=== PATIENT | male | born 1975 | race Caucasian/White ===

== ENCOUNTER 2016-08-12 01:39 | Emergency (ER) | payer MEDICAID ==
[2016-08-12 01:57] VITALS: BP 156/88
[2016-08-12] MEDS ORDERED: Bacitracin Oint 1 GM U/D Packet TOP ONE (02:01)
--- NOTE | 2016-08-12 02:05 | EDM.PDOC ---
[id number] 4d LT INDEX CUT Time Seen by Provider: 08/12/16 01:50 Source of Information: Reports: Patient History Limitations: Reports: No Limitations - History of Present Illness INITIAL COMMENTS - FREE TEXT/NARRATIVE: 41-year-old male had a repair of a laceration of his hand 4 days ago, the sutures have fallen out. He just wants it checked to make sure nothing needs to be done. Duration: Day(s): (4 days ago) Severity: Mild Associated Symptoms: Reports: No Other Symptoms - Related Data Allergies Allergy/AdvReac Type Severity Reaction Status Date / Time codeine Allergy Intermediate Itching Verified 08/12/16 01:57 tramadol Allergy Intermediate Itching Verified 08/12/16 01:57 Home Meds: Home Meds Carisoprodol [Soma] 350 mg PO BID 01/21/13 [History] Gabapentin [Gabapentin] 600 mg PO 6XDAY 01/21/13 [History] Hydrocodone/Acetaminophen [[place] 7.5-325] 1 - 2 tab PO Q4H PRN #32 tablet [Rx] Cephalexin [Keflex] 500 mg PO Q6HR #40 cap 08/08/16 [Rx] Past Medical History Musculoskeletal History: Reports: Other (See Below) Other Musculoskeletal History: chronic low back pain, 4 knee surgeries Social & Family History - Tobacco Use Smoking Status *Q: Former Smoker Years of Tobacco use: 15 Used Tobacco, but Quit: Yes Month Tobacco Last Used: quit 5 years ago Second Hand Smoke Exposure: Yes - Caffeine Use Caffeine Use: Reports: Coffee - Alcohol Use Days Per Week of Alcohol Use: 0 - Recreational Drug Use Recreational Drug Use: No ED ROS GENERAL - Review of Systems Review Of Systems: See Below Constitutional: Denies: Fever GI/Abdominal: Denies: Nausea, Vomiting ED EXAM, SKIN/RASH Exam: See Below Exam Limited By: No Limitations General Appearance: Alert, No Apparent Distress Respiratory/Chest: No Respiratory Distress Extremities: Other (Exam is otherwise limited to the left hand. He has a 2 cm laceration which is healing on the palmar aspect of the base of the index finger.) Course - Vital Signs Last Recorded V/S: Last Vital Signs Temp 98.7 F 08/12/16 01:55 Pulse 90 08/12/16 01:55 Resp 14 08/12/16 01:55 BP 156/88 H 08/12/16 01:55 Pulse Ox 92 L 08/12/16 01:55 - Orders/Labs/Meds Meds: Medications Discontinued Medications Generic Name Dose Route Start Last Admin Trade Name Wes PRN Reason Stop Dose Admin Bacitracin 1 dose 08/12/16 02:01 08/12/16 02:09 Bacitracin Oint 1 Gm TOP 08/12/16 02:02 1 dose ONETIME ONE Administration - Re-Assessments/Exams Free Text/Narrative Re-Assessment/Exam: 08/12/16 02:03 Topical bacitracin was applied and the finger was bandaged. The patient just keeps the finger covered and clean for another several days it should heal without further repair. Departure - Departure Time of Disposition: 02:15 Disposition: Home, Self-Care 01 Condition: good Clinical Impression: Laceration of finger Qualifiers: Encounter type: initial encounter Finger: index finger Damage to nail status: without damage Foreign body presence: without foreign body Laterality: left Qualified Code(s): S61.211A - Laceration without foreign body of left index finger without damage to nail, initial encounter - Discharge Information Instructions: Laceration Care, Adult Referrals: PCP,None [Primary Care Provider] - Forms: ED Department Discharge Care Plan Goals: Keep wound covered and clean while healing and you should continue to improve. Recheck if concerns of infection or not healing satisfactorily.
== END 2016-08-12 02:12 | disposition home or self-care (01) ==
LOC: JP.ED 01:39
DX: S61.211A Laceration without foreign body of left index finger without damage to nail, initial encounter (principal); Z88.5 Allergy status to narcotic agent; Z88.8 Allergy status to other drugs, medicaments and biological substances; Z98.890 Other specified postprocedural states; Z87.891 Personal history of nicotine dependence; X58.XXXA Exposure to other specified factors, initial encounter
CPT/HCPCS: 99283

== ENCOUNTER 2017-09-20 04:31 | Emergency (ER) | payer MEDICAID ==
[2017-09-20 04:43] VITALS: BP 145/85
--- NOTE | 2017-09-20 05:13 | EDM.PDOC ---
ED HPI GENERAL MEDICAL PROBLEM - General Chief Complaint: ENT Problem Stated Complaint: PAIN IN BOTH EARS RIGHT IS THE WORST Time Seen by Provider: 09/20/17 05:08 Source of Information: Reports: Patient History Limitations: Reports: No Limitations - History of Present Illness INITIAL COMMENTS - FREE TEXT/NARRATIVE: Both ears hurting for 1 day especially the right ear. so bad that he can't sleep. He's been swimming recently. Right Ear Pain Score (Numeric/FACES): 9 - Related Data Allergies Allergy/AdvReac Type Severity Reaction Status Date / Time codeine Allergy Intermediate Itching Verified 09/20/17 04:43 tramadol Allergy Intermediate Itching Verified 09/20/17 04:43 Home Meds: Home Meds Carisoprodol [Soma] 350 mg PO BID 01/21/13 [History] Gabapentin 600 mg PO 6XDAY 01/21/13 [History] Hydrocodone/Acetaminophen [[place] 7.5-325] 1 - 2 tab PO Q4H PRN #32 tablet [Rx] Omeprazole 40 mg PO DAILY 09/20/17 [History] Past Medical History Cardiovascular History: Reports: Hypertension Gastrointestinal History: Reports: Cholelithiasis Musculoskeletal History: Reports: Back Pain, Chronic Other Musculoskeletal History: chronic low back pain, 4 knee surgeries Neurological History: Reports: Migraines - Infectious Disease History Infectious Disease History: Reports: Chicken Pox - Past Surgical History GI Surgical History: Reports: Cholecystectomy Neurological Surgical History: Reports: Discectomy Other Neurological Surgeries/Procedures: L4 &5 Musculoskeletal Surgical History: Reports: Arthroscopic Knee Other Musculoskeletal Surgeries/Procedures:: x3 Social & Family History - Family History Family Medical History: Noncontributory - Tobacco Use Smoking Status *Q: Former Smoker Used Tobacco, but Quit: Yes Month/Year Tobacco Last Used: 5-6 years ago - Caffeine Use Caffeine Use: Reports: Soda - Recreational Drug Use Recreational Drug Use: No ED ROS ENT - Review of Systems Review Of Systems: ROS reveals no pertinent complaints other than HPI. ED EXAM, ENT - Physical Exam Exam: See Below Exam Limited By: No Limitations General Appearance: Alert, WD/WN Ears: Other (Canals are very narrow and deep. Both slightly reddened and wet. Right TM bulging some but not well seen ) Mouth/Throat: Normal Oropharynx Course - Vital Signs Last Recorded V/S: Last Vital Signs Temp 37.0 C 09/20/17 04:35 Pulse 63 09/20/17 04:35 Resp 18 09/20/17 04:35 BP 145/85 H 09/20/17 04:35 Pulse Ox 97 09/20/17 04:35 Departure - Departure Time of Disposition: 05:13 Disposition: Home, Self-Care 01 Condition: Fair Clinical Impression: Otitis media, Otitis externa - Discharge Information Referrals: Frandy Matrines MD [Primary Care Provider] - Additional Instructions: Use cortisporin drops as directed for about 5 days for infection in the ear canal. There may be an infection behind the eardrum also and the oral amoxicillin will take care of that. See your doctor if no better in 3 days.
== END 2017-09-20 05:21 | disposition home or self-care (01) ==
LOC: JP.ED 04:31
DX: H66.91 Otitis media, unspecified, right ear (principal); H60.91 Unspecified otitis externa, right ear; I10 Essential (primary) hypertension; Z87.891 Personal history of nicotine dependence; Z88.5 Allergy status to narcotic agent
CPT/HCPCS: 99283

== ENCOUNTER 2017-10-19 19:36 | Emergency (ER) | payer MEDICAID ==
--- NOTE | 2017-10-19 20:13 | EDM.PDOC ---
ED HPI GENERAL MEDICAL PROBLEM - General Chief Complaint: Abdominal Pain Stated Complaint: DIARHHEA, FEVER, CHILLS, HEADACHE Time Seen by Provider: 10/19/17 19:52 Source of Information: Reports: Patient History Limitations: Reports: No Limitations - History of Present Illness INITIAL COMMENTS - FREE TEXT/NARRATIVE: 42 yo male presents with ABD pain, fever, chills and diarrhea. poor appetite. denies bloody or black or bloody stools. past ABD surgery of cholecystectomy. denies dysuria. - Related Data Allergies Allergy/AdvReac Type Severity Reaction Status Date / Time codeine Allergy Intermediate Itching Verified 10/19/17 19:50 tramadol Allergy Intermediate Itching Verified 10/19/17 19:50 Home Meds: Home Meds Carisoprodol [Soma] 350 mg PO BID 01/21/13 [History] Gabapentin 600 mg PO 6XDAY 01/21/13 [History] Hydrocodone/Acetaminophen [[place] 7.5-325] 1 - 2 tab PO Q4H PRN #32 tablet [Rx] Omeprazole 40 mg PO DAILY 09/20/17 [History] Past Medical History Cardiovascular History: Reports: Hypertension Gastrointestinal History: Reports: Cholelithiasis Musculoskeletal History: Reports: Back Pain, Chronic Other Musculoskeletal History: chronic low back pain, 4 knee surgeries Neurological History: Reports: Migraines - Infectious Disease History Infectious Disease History: Reports: Chicken Pox - Past Surgical History GI Surgical History: Reports: Cholecystectomy Neurological Surgical History: Reports: Discectomy Other Neurological Surgeries/Procedures: L4 &5 Musculoskeletal Surgical History: Reports: Arthroscopic Knee Other Musculoskeletal Surgeries/Procedures:: x3 Social & Family History - Family History Family Medical History: Noncontributory - Tobacco Use Smoking Status *Q: Never Smoker - Caffeine Use Caffeine Use: Reports: Soda ED ROS GENERAL - Review of Systems Review Of Systems: See Below Constitutional: Reports: Fever, Chills, Malaise, Fatigue Respiratory: Denies: Shortness of Breath, Wheezing Cardiovascular: Denies: Chest Pain GI/Abdominal: Reports: Abdominal Pain, Diarrhea. Denies: Melena, Nausea, Vomiting Skin: Denies: Rash ED EXAM, GI/ABD - Physical Exam Exam: See Below Exam Limited By: No Limitations General Appearance: Alert, WD/WN, No Apparent Distress Head: Atraumatic, Normocephalic Respiratory/Chest: No Respiratory Distress, Lungs Clear, Normal Breath Sounds, No Accessory Muscle Use, Chest Non-Tender Cardiovascular: Regular Rate, Rhythm, No Murmur, No Rub GI/Abdominal Exam: Soft, No Distention, Tender (RLQ sever tenderness) Neurological: Alert, Oriented Skin Exam: Warm, Dry, Intact, No Rash Course - Vital Signs Last Recorded V/S: Last Vital Signs Temp 37.5 C 10/19/17 19:56 Pulse 78 10/19/17 20:59 Resp 16 10/19/17 19:56 BP 121/57 L 10/19/17 20:59 Pulse Ox 99 10/19/17 20:59 - Orders/Labs/Meds Orders: Active Orders 24 hr Category Date Time Status UA W/MICROSCOPIC [URIN] Stat Lab 10/19/17 21:12 Ordered Sodium Chloride 0.9% [Normal Saline] 1,000 ml Med 10/19/17 20:15 Active IV ASDIRECTED Medication Orders Sodium Chloride (Normal Saline) 1,000 mls @ 999 mls/hr IV ASDIRECTED MAITE Last Admin: 10/19/17 20:28 Dose: 999 mls/hr Labs: Laboratory Tests 10/19/17 10/19/17 10/19/17 Range/Units 20:18 20:18 21:12 WBC 6.6 (4.5-11.0) K/uL RBC 5.44 (4.30-5.90) M/uL Hgb 15.5 H (12.0-15.0) g/dL Hct 45.1 (40.0-54.0) % MCV 83 (80-98) fL MCH 29 (27-31) pg MCHC 34 (32-36) % Plt Count 266 (150-400) K/uL Neut % (Auto) 51 (36-66) % Lymph % (Auto) 24 (24-44) % [place] % (Auto) 21 H (2-6) % Eos % (Auto) 2 (2-4) % Baso % (Auto) 1 (0-1) % Sodium 137 L (140-148) mmol/L Potassium 4.0 (3.6-5.2) mmol/L Chloride 102 (100-108) mmol/L Carbon Dioxide 23 (21-32) mmol/L Anion Gap 16.0 H (5.0-14.0) mmol/L BUN 9 (7-18) mg/dL Creatinine 1.2 (0.8-1.3) mg/dL Est Cr Clr Drug Dosing 84.49 mL/min Estimated GFR (MDRD) > 60 (>60) Glucose 91 (74-106) mg/dL Calcium 8.6 (8.5-10.1) mg/dL Total Bilirubin 0.5 (0.2-1.0) mg/dL AST 28 (15-37) U/L ALT 59 (12-78) U/L Alkaline Phosphatase 74 (46-116) U/L Total Protein 6.7 (6.4-8.2) g/dL Albumin 3.2 L (3.4-5.0) g/dL Globulin 3.5 (2.3-3.5) g/dL Albumin/Globulin Ratio 0.9 L (1.2-2.2) Urine Color [place] Urine Appearance Clear Urine pH 5.0 (4.5-8.0) Ur Specific [place] 1.020 (1.008-1.030) Urine Protein Negative (NEGATIVE) mg/dL Urine Glucose (UA) Normal (NEGATIVE) mg/dL Urine Ketones 15 H (NEGATIVE) mg/dL Urine Occult Blood Negative (NEGATIVE) Urine Nitrite Negative (NEGAITVE) Urine Bilirubin Small (NEGATIVE) Urine Urobilinogen Normal (NORMAL) mg/dL Ur Leukocyte Esterase Negative (NEGATIVE) Urine RBC 0-5 (0-5) Urine WBC 0-5 (0-5) Ur Epithelial Cells Moderate Amorphous Sediment Few Urine Bacteria Few Urine Mucus Numerous Urine Other See note Meds: Medications Generic Name Dose Route Start Last Admin Trade Name Freq PRN Reason Stop Dose Admin Sodium Chloride 1,000 mls @ 999 mls/hr 10/19/17 20:15 10/19/17 20:28 Normal Saline IV 999 mls/hr ASDIRECTED MAITE Administration Discontinued Medications Generic Name Dose Route Start Last Admin Trade Name Freq PRN Reason Stop Dose Admin Fentanyl 50 mcg 10/19/17 20:08 10/19/17 20:28 Sublimaze IVPUSH 10/19/17 20:09 50 mcg ONETIME ONE Administration Ondansetron HCl 4 mg 10/19/17 20:08 10/19/17 20:28 Zofran IVPUSH 10/19/17 20:09 4 mg ONETIME ONE Administration - Re-Assessments/Exams Free Text/Narrative Re-Assessment/Exam: 10/19/17 21:38 pain resolved. rehydrated. will follow-up with PCP for stool samples if diarrhea continues Departure - Departure Time of Disposition: 21:38 Disposition: Home, Self-Care 01 Condition: Good Clinical Impression: Gastroenteritis Diarrhea Qualifiers: Diarrhea type: unspecified type Qualified Code(s): R19.7 - Diarrhea, unspecified - Discharge Information *PRESCRIPTION DRUG MONITORING PROGRAM REVIEWED*: Not Applicable *COPY OF PRESCRIPTION DRUG MONITORING REPORT IN PATIENT GLADYS: Not Applicable Instructions: Viral Gastroenteritis, Adult, [id number] Referrals: Frandy Martines MD [Primary Care Provider] - Forms: ED Department Discharge Additional Instructions: fluid intake with goal of 1.5-2 liters per day advance diet as tolerated follow-up with primary care for stool samples if diarrhea continues - My Orders Last 24 Hours: My Active Orders 10/19/17 20:15 Sodium Chloride 0.9% [Normal Saline] 1,000 ml IV ASDIRECTED 10/19/17 21:12 UA W/MICROSCOPIC [URIN] Stat - Assessment/Plan Last 24 Hours: My Active Orders 10/19/17 20:15 Sodium Chloride 0.9% [Normal Saline] 1,000 ml IV ASDIRECTED 10/19/17 21:12 UA W/MICROSCOPIC [URIN] Stat
[2017-10-19] MEDS: fentaNYL 100 MCG/2 ML SDV IVPUSH ONE (20:28)
[2017-10-19] MEDS: Sodium Chloride 0.9% 1,000 ML IV SCH (20:28)
[2017-10-19] MEDS: Ondansetron 4 MG/2 ML SDV IVPUSH ONE (20:28)
[2017-10-19 20:59] VITALS: BP 121/57
== END 2017-10-19 21:50 | disposition home or self-care (01) ==
LOC: JP.ED 19:36
DX: K52.9 Noninfective gastroenteritis and colitis, unspecified (principal); I10 Essential (primary) hypertension; Z88.5 Allergy status to narcotic agent; Z90.49 Acquired absence of other specified parts of digestive tract; Z79.899 Other long term (current) drug therapy
CPT/HCPCS: 36415; 80053; 81001; 85025; 96361; 96374; 96375; 99284; J2405; J3010; J7030

== ENCOUNTER 2020-10-06 03:39 | Emergency (ER) | payer MEDICAID ==
--- NOTE | 2020-10-06 04:19 | EDM.PDOC ---
ED HPI GENERAL MEDICAL PROBLEM - General Chief Complaint: Fever Stated Complaint: FEVER Time Seen by Provider: 10/06/20 04:09 Source of Information: Reports: Patient History Limitations: Reports: No Limitations - History of Present Illness INITIAL COMMENTS - FREE TEXT/NARRATIVE: Trent is a 45-year-old male presenting to the ED for evaluation of Covid-like symptoms including fever and chills, rigors, cough with shortness of breath, headache and body aches, chest pain, muscle aches, and increased fatigue. The patient has had his symptoms for the last 5 or 6 days. He has not previously had Covid, nor is he vaccinated for it. He is unaware of being around anyone that has been ill. Bilateral Chest Pain Score (Numeric/FACES): 6 - Related Data Allergies Allergy/AdvReac Type Severity Reaction Status Date / Time codeine Allergy Intermediate Itching Verified 10/06/20 03:55 tramadol Allergy Intermediate Itching Verified 10/06/20 03:55 Home Meds: Home Meds NK [No Known Home Meds] 10/06/20 [History] Past Medical History Cardiovascular History: Reports: Hypertension Gastrointestinal History: Reports: Cholelithiasis Musculoskeletal History: Reports: Back Pain, Chronic Other Musculoskeletal History: chronic low back pain, 4 knee surgeries Neurological History: Reports: Migraines - Infectious Disease History Infectious Disease History: Reports: Chicken Pox - Past Surgical History GI Surgical History: Reports: Cholecystectomy Neurological Surgical History: Reports: Discectomy Other Neurological Surgeries/Procedures: L4 &5 Musculoskeletal Surgical History: Reports: Arthroscopic Knee Other Musculoskeletal Surgeries/Procedures:: x3 Social & Family History - Family History Family Medical History: No Pertinent Family History - Tobacco Use Tobacco Use Status *Q: Never Tobacco User - Caffeine Use Caffeine Use: Reports: Coffee - Recreational Drug Use Recreational Drug Use: No ED ROS GENERAL - Review of Systems Review Of Systems: See Below Constitutional: Reports: Fever, Chills, Fatigue, Decreased Appetite HEENT: Reports: Rhinitis Respiratory: Reports: Shortness of Breath, Cough Cardiovascular: Reports: Chest Pain Endocrine: Reports: Fatigue GI/Abdominal: Reports: Decreased Appetite, Nausea : Reports: No Symptoms Musculoskeletal: Reports: Muscle Pain Neurological: Reports: Headache Psychiatric: Reports: No Symptoms Hematologic/Lymphatic: Reports: No Symptoms Immunologic: Reports: No Symptoms ED EXAM, GENERAL - Physical Exam Exam: See Below Exam Limited By: No Limitations General Appearance: Alert, Anxious, Moderate Distress Eye Exam: Bilateral Eye: EOMI, PERRL Nose: Nasal Swelling, Nasal Drainage, Clear Rhinorrhea Throat/Mouth: Normal Inspection, Normal Oropharynx, Normal Voice, No Airway Compromise Head: Atraumatic, Normocephalic Neck: Normal Inspection, Supple. No: Lymphadenopathy (R), Lymphadenopathy (L) Respiratory/Chest: No Respiratory Distress, Lungs Clear, Normal Breath Sounds Cardiovascular: Normal Peripheral Pulses, Regular Rate, Rhythm, No Murmur Peripheral Pulses: 2+: Radial (R) GI/Abdominal: Normal Bowel Sounds, Soft, Non-Tender. No: Guarding, Rigid, Rebound Extremities: Normal Inspection, Normal Range of Motion, No Pedal Edema Neurological: Alert, Oriented, Normal Cognition, No Motor/Sensory Deficits Psychiatric: Normal Affect, Anxious Skin Exam: Warm, Dry, Intact, Normal Color, No Rash Lymphatic: No Adenopathy Course - Vital Signs Last Recorded V/S: Last Vital Signs Temp 38.7 C H 10/06/20 04:03 Pulse 89 10/06/20 05:27 Resp 24 H 10/06/20 05:27 BP 125/64 10/06/20 05:27 Pulse Ox 94 L 10/06/20 05:27 - Orders/Labs/Meds Orders: Active Orders 24 hr Category Date Time Status Sodium Chloride 0.9% [Saline Flush] Med 10/06/20 05:09 Active 10 ml FLUSH ASDIRECTED PRN Isolation [COMM] Stat Oth 10/06/20 03:57 Ordered Saline Lock Insert [OM.PC] Routine Oth 10/06/20 05:09 Ordered Medication Orders Sodium Chloride (Sodium Chloride 0.9% 10 Ml Syringe) 10 ml FLUSH ASDIRECTED PRN PRN Reason: Keep Vein Open Labs: Laboratory Tests 10/06/20 10/06/20 10/06/20 Range/Units 04:02 04:20 04:20 WBC 5.6 (4.5-11.0) K/uL RBC 5.13 (4.30-5.90) M/uL Hgb 14.5 (12.0-15.0) g/dL Hct 42.6 (40.0-54.0) % MCV 83 (80-98) fL MCH 28 (27-31) pg MCHC 34 (32-36) % Plt Count 188 (150-400) K/uL Neut % (Auto) 77.4 H (36-66) % Lymph % (Auto) 13.8 L (24-44) % [place] % (Auto) 8.4 H (2-6) % Eos % (Auto) 0.0 L (2-4) % Baso % (Auto) 0.4 (0-1) % D-Dimer, Quantitative 1168.84 H (0.0-500.0) ng/mL Sodium (140-148) mmol/L Potassium (3.6-5.2) mmol/L Chloride (100-108) mmol/L Carbon Dioxide (21-32) mmol/L Anion Gap (5.0-14.0) mmol/L BUN (7-18) mg/dL Creatinine (0.8-1.3) mg/dL Est Cr Clr Drug Dosing Estimated GFR (MDRD) (>60) Glucose (74-106) mg/dL Lactic Acid (0.4-2.0) mmol/L Calcium (8.5-10.1) mg/dL Total Bilirubin (0.2-1.0) mg/dL AST (15-37) U/L ALT (12-78) U/L Alkaline Phosphatase (46-116) U/L C-Reactive Protein (0.0-0.3) mg/dL Total Protein (6.4-8.2) g/dL Albumin (3.4-5.0) g/dL Globulin (2.3-3.5) g/dL Albumin/Globulin Ratio (1.2-2.2) Procalcitonin ng/mL Influenza Type A RNA Negative (NEGATIVE) RSV RNA (INAAT) Negative (NEGATIVE) Influenza Type B RNA Negative (NEGATIVE) SARS-CoV-2 RNA (NIGEL) Positive H (NEGATIVE) 10/06/20 10/06/20 10/06/20 Range/Units 04:20 04:20 04:20 WBC (4.5-11.0) K/uL RBC (4.30-5.90) M/uL Hgb (12.0-15.0) g/dL Hct (40.0-54.0) % MCV (80-98) fL MCH (27-31) pg MCHC (32-36) % Plt Count (150-400) K/uL Neut % (Auto) (36-66) % Lymph % (Auto) (24-44) % [place] % (Auto) (2-6) % Eos % (Auto) (2-4) % Baso % (Auto) (0-1) % D-Dimer, Quantitative (0.0-500.0) ng/mL Sodium 138 L (140-148) mmol/L Potassium 4.4 (3.6-5.2) mmol/L Chloride 102 (100-108) mmol/L Carbon Dioxide 28 (21-32) mmol/L Anion Gap 12.4 (5.0-14.0) mmol/L BUN 13 (7-18) mg/dL Creatinine 1.2 (0.8-1.3) mg/dL Est Cr Clr Drug Dosing TNP Estimated GFR (MDRD) > 60 (>60) Glucose 122 H (74-106) mg/dL Lactic Acid 1.1 (0.4-2.0) mmol/L Calcium 7.9 L (8.5-10.1) mg/dL Total Bilirubin 0.3 (0.2-1.0) mg/dL AST 30 (15-37) U/L ALT 40 (12-78) U/L Alkaline Phosphatase 74 (46-116) U/L C-Reactive Protein 6.40 H (0.0-0.3) mg/dL Total Protein 6.5 (6.4-8.2) g/dL Albumin 3.1 L (3.4-5.0) g/dL Globulin 3.4 (2.3-3.5) g/dL Albumin/Globulin Ratio 0.9 L (1.2-2.2) Procalcitonin < 0.05 ng/mL Influenza Type A RNA (NEGATIVE) RSV RNA (INAAT) (NEGATIVE) Influenza Type B RNA (NEGATIVE) SARS-CoV-2 RNA (NIGEL) (NEGATIVE) Meds: Medications Generic Name Dose Route Start Last Admin Trade Name Freq PRN Reason Stop Dose Admin Sodium Chloride 10 ml 10/06/20 05:09 Sodium Chloride 0.9% 10 Ml Syringe FLUSH ASDIRECTED PRN Keep Vein Open Discontinued Medications Generic Name Dose Route Start Last Admin Trade Name Freq PRN Reason Stop Dose Admin Calcium Carbonate/Glycine 1,000 mg 10/06/20 04:58 10/06/20 05:23 Calcium Carbonate 500 Mg Tab.Chew PO 10/06/20 04:59 1,000 mg ONETIME ONE Administration Sodium Chloride 100 mls @ 4 mls/sec 10/06/20 05:43 10/06/20 05:54 Normal Saline IV 10/06/20 05:44 4 mls/sec ASDIRECTED STA Administration Iopamidol 100 ml 10/06/20 05:43 10/06/20 05:53 Iopamidol 755 Mg/Ml 100 Ml Bottle IV 10/06/20 05:44 100 ml . DIRECTED STA Administration - Re-Assessments/Exams Free Text/Narrative Re-Assessment/Exam: 10/06/20 05:00 I reviewed the patient's labs with a CBC showing a normal leukocyte count at 5.6 with a hemoglobin of 14.5, hematocrit of 42.6, and a platelet count of 188,000. The comprehensive metabolic panel is significant for sodium of 138, potassium 4.4, chloride of 102 with a bicarbonate of 28, BUN of 13 with a creatinine 1.2 and a glucose of 122. The GFR is calculated at greater than 60. The patient's calcium is significantly low at 7.9 with an albumin of 3.1 and a corrected calcium of 8.1. His lactic acid is 1.1 and his CRP is 6.4. The patient is positive for COVID-19 but negative for influenza and RSV. His D-dimer is 10/06/20 05:07 I reviewed the guidelines for prescribing Bamlamivimab in this gentleman, however, he is in eligible as he is 45 years old, has only hypertension as a comorbidity and is on no medications for his hypertension. Based on the prescribing guidelines he is ineligible for receiving this treatment. Departure - Departure Time of Disposition: 06:53 Disposition: Home, Self-Care 01 Clinical Impression: COVID-19, Hypocalcemia - Discharge Information Instructions: COVID-19 Frequently Asked Questions, COVID-19, COVID-19: Quarantine vs. Isolation - CDC, Prevent the Spread of COVID-19 if You Are Sick - CDC Referrals: PCP,None [Primary Care Provider] - Forms: ED Department Discharge Care Plan Goals: Return to the ED for reevaluation should you develop significant worsening of your shortness of breath, increased chest pain, or worsening of symptoms. Otherwise, I recommend quarantining at home for the next 14 days. Drink fluids to quench thirst but do not overdo it. I encourage plenty of rest. You may take Tylenol or ibuprofen for the body aches and any fever control. Unfortunately due to your age and medical health, you are not eligible for the monoclonal antibody treatment Bamlamivimab. Sepsis Event Note (ED) - Evaluation Sepsis Screening Result: No Definite Risk - Focused Exam Vital Signs: Vital Signs Temp Pulse Resp BP Pulse Ox 10/06/20 05:27 89 24 H 125/64 94 L 10/06/20 04:03 38.7 C H 95 24 H 127/70 94 L - Problem List & Annotations (1) COVID-19 SNOMED Code(s): 517990889 Code(s): U07.1 - COVID-19 Status: Acute Priority: High Current Visit: Yes (2) Hypocalcemia SNOMED Code(s): 9018282 Code(s): E83.51 - HYPOCALCEMIA Status: Acute Priority: High Current Visit: Yes - Problem List Review Problem List Initiated/Reviewed/Updated: Yes - My Orders Last 24 Hours: My Active Orders 10/06/20 03:57 Isolation [COMM] Stat 10/06/20 05:09 Sodium Chloride 0.9% [Saline Flush] 10 ml FLUSH ASDIRECTED PRN Saline Lock Insert [OM.PC] Routine - Assessment/Plan Last 24 Hours: My Active Orders 10/06/20 03:57 Isolation [COMM] Stat 10/06/20 05:09 Sodium Chloride 0.9% [Saline Flush] 10 ml FLUSH ASDIRECTED PRN Saline Lock Insert [OM.PC] Routine
[2020-10-06 04:41] LABS: CORONAVIRUS COVID-19 NAA POSITIVE (NEGATIVE)
[2020-10-06] MEDS ORDERED: Calcium Carbonate 500 MG Tab.Chew PO ONE (04:58)
[2020-10-06] MEDS ORDERED: Sodium Chloride 0.9% 10 ML Syringe FLUSH PRN (05:09)
[2020-10-06 05:28] VITALS: BP 125/64; PULSE 89
--- NOTE | 2020-10-06 05:37 | CRLCR ---
For Patients: As a result of the Cures Act, medical imaging exams and procedure reports are released immediately into your electronic medical record. You may view this report before your referring provider. If you have questions, please contact your health care provider. INDICATION: COVID-19 TECHNIQUE: Chest radiograph 1 view on 2 films COMPARISON: 09/06/2013 FINDINGS: Mediastinum: The mediastinum is normal in appearance. The heart silhouette is normal in size and morphology. Lung: Mild patchy airspace and ground-glass opacities are present in both lungs. No sign of pleural effusion seen. No pneumothorax is identified. Bone and Soft tissue: Unremarkable for age. IMPRESSION: 1. Mild patchy airspace and ground-glass opacities are present in both lungs. Findings are consistent with clinical history of COVID-19 infection. Dictated by Piero Gr MD @ 10/06/2020 5:36:20 AM Dictated by: Piero Gr MD @ 10/06/2020 05:36:24 (Electronically Signed)
[2020-10-06] MEDS ORDERED: Iopamidol 755 Mg/ML 100 ML Bottle IV STA (05:43)
[2020-10-06] MEDS ORDERED: Sodium Chloride 0.9% 100 ML IV STA (05:43)
--- NOTE | 2020-10-06 06:47 | CRLCT ---
For Patients: As a result of the Cures Act, medical imaging exams and procedure reports are released immediately into your electronic medical record. You may view this report before your referring provider. If you have questions, please contact your health care provider. Indication: Positive for rivera virus Technique: Volumetric multidetector CT images of the chest were obtained after the administration of IV contrast. 100 cc Isovue 370 low osmolar intravenous contrast Comparison: None available. Findings: The thoracic inlet and thyroid gland are unremarkable. The thoracic aorta is nonaneurysmal. There is no central filling defect to suggest pulmonary embolism. There are reactive mediastinal and hilar lymph nodes. There is no axillary adenopathy. There is mild central bronchial thickening with minimal mucoid impaction of the lower lobe bronchi. There are extensive ground-glass and airspace opacities seen throughout the bilateral hemithoraces likely representing developing multifocal viral infiltrates. There is no pneumothorax or pleural effusion. There is no evidence of pulmonary mass or suspicious pulmonary nodule. The partially visualized upper abdomen demonstrates hepatic steatosis with simple cystic changes. The thoracic vertebral body heights are grossly maintained with minimal endplate Schmorl`s defects. There is no significant spondylolisthesis or displaced fracture. Impression: Extensive ground-glass and airspace opacities seen throughout the bilateral hemithoraces likely representing developing multifocal bilateral infiltrates with reactive mediastinal and hilar lymph nodes. Please note that all CT scans at this facility use dose modulation, iterative reconstruction, and/or weight-based dosing when appropriate to reduce radiation dose to as low as reasonably achievable. Dictated by Donn Casey MD @ 10/06/2020 6:44:[address] Donn Casey @ Oct 06 2020 6:44AM
== END 2020-10-06 07:06 | disposition home or self-care (01) ==
LOC: JP.ED 03:39
DX: U07.1 COVID-19 (principal); E83.51 Hypocalcemia; I10 Essential (primary) hypertension; Z88.5 Allergy status to narcotic agent
CPT/HCPCS: 0241U; 36415; 71045; 71275; 80053; 83605; 84145; 85025; 85379; 86140; 99285; A9270; Q9967

== ENCOUNTER 2020-11-17 00:03 | Inpatient (IN) | payer MEDICAID ==
--- NOTE | 2020-11-17 00:09 | EDM.PDOC ---
ED HPI GENERAL MEDICAL PROBLEM - General Stated Complaint: [facility] Time Seen by Provider: 11/17/20 00:03 Source of Information: Reports: Patient, EMS History Limitations: Reports: No Limitations - History of Present Illness INITIAL COMMENTS - FREE TEXT/NARRATIVE: 45-year-old male with prior severe back issues including surgery x2, was on a ladder 3 days ago when he started to fall and reached out for something at an awkward angle and felt a significant pull in his lower back. He managed to get down off the ladder but since that time he has developed progressive weakness in his lower extremities, especially the right and increased pain. At times his feet feel like they are under extreme pressure like balloons. He is starting to lose bladder control. He has numbness in both extremities, especially the right leg. Tonight he tried to get to the bathroom with a walker and didn't have the strength in the right leg to bear weight. He then called the ambulance. Onset: Gradual (Symptoms have gradually worsened for 3 days since his injury) Associated Symptoms: Reports: Weakness (Weakness in his lower extremities, especially the right). Denies: Chest Pain, Cough, Diaphoresis, Fever/Chills, Nausea/Vomiting, Shortness of Breath Right Leg Pain Score (Numeric/FACES): 4 - Related Data Allergies Allergy/AdvReac Type Severity Reaction Status Date / Time codeine Allergy Intermediate Itching Verified 11/17/20 00:13 tramadol Allergy Intermediate Itching Verified 11/17/20 00:13 Home Meds: Home Meds NK [No Known Home Meds] 10/06/20 [History] Past Medical History Cardiovascular History: Reports: Hypertension Gastrointestinal History: Reports: Cholelithiasis Musculoskeletal History: Reports: Back Pain, Chronic Other Musculoskeletal History: chronic low back pain, 4 knee surgeries Neurological History: Reports: Migraines - Infectious Disease History Infectious Disease History: Reports: Chicken Pox - Past Surgical History GI Surgical History: Reports: Cholecystectomy Neurological Surgical History: Reports: Discectomy Other Neurological Surgeries/Procedures: L4 &5 Musculoskeletal Surgical History: Reports: Arthroscopic Knee Other Musculoskeletal Surgeries/Procedures:: x3 Social & Family History - Family History Family Medical History: No Pertinent Family History - Caffeine Use Caffeine Use: Reports: Coffee ED ROS GENERAL - Review of Systems Review Of Systems: See Below Constitutional: Denies: Fever, Chills Respiratory: Denies: Shortness of Breath Cardiovascular: Denies: Chest Pain GI/Abdominal: Denies: Abdominal Pain, Nausea, Vomiting Musculoskeletal: Reports: Back Pain (Significant back pain starting in the sacral area extending out through the buttock down the extremities) Skin: Denies: Bruising Neurological: Reports: Paresthesia (Numbness in the lower extremities right worse than left, weakness of the right lower extremity) Psychiatric: Reports: No Symptoms ED EXAM,LOWER BACK PAIN/INJURY - Physical Exam Exam: See Below Exam Limited By: No Limitations General Appearance: Alert, No Apparent Distress (Fairly comfortable when lying still) Head: Atraumatic Respiratory/Chest: No Respiratory Distress GI/Abdominal: Soft, Non-Tender Rectal (Males) Exam: Other (Developing some bladder incontinence, loss of control) Extremities: Other (He has definite plantar flexion weakness of the right leg compared to the left, and slight decreased sensation over the entire leg on the right side) Neurological: Abnormal Motor (Abnormal motor strength of the right lower extremity) DTR - Lower Extremities: 3+: Knee (R), Knee (L) Psychiatric: Normal Affect, Normal Mood Skin Exam: Warm, Dry Course - Vital Signs Last Recorded V/S: Last Vital Signs Temp 98.6 F 11/17/20 03:15 Pulse 71 11/17/20 08:09 Resp 16 11/17/20 08:09 BP 113/72 11/17/20 08:09 Pulse Ox 92 L 11/17/20 10:00 - Orders/Labs/Meds Orders: Medication Orders Acetaminophen (Acetaminophen 325 Mg Tab) 650 mg PO Q4H PRN PRN Reason: Pain (Mild 1-3)/fever Bisacodyl (Bisacodyl 5 Mg Tab) 5 mg PO DAILY PRN PRN Reason: Constipation Docusate Sodium (Docusate Sodium 100 Mg Cap) 100 mg PO BID PRN PRN Reason: Constipation Enoxaparin Sodium (Enoxaparin 40 Mg/0.4 Ml Syringe) 40 mg SUBCUT DAILY [facility] Last Admin: 11/17/20 08:12 Dose: 40 mg Documented by: MARCO Hydromorphone HCl (Hydromorphone 1 Mg/Ml Syringe) 1 mg IVPUSH Q2H PRN PRN Reason: Pain Methylprednisolone Sodium Succinate (Methylprednisolone Sodium Succinate 40 Mg/1 Ml Sdv) 40 mg IVPUSH Q6H [facility] Last Admin: 11/17/20 08:01 Dose: 40 mg Documented by: MARCO Naloxone HCl (Naloxone 0.4 Mg/Ml Sdv) 0.4 mg IVPUSH Q2M PRN PRN Reason: Respiratory Distress Ondansetron HCl (Ondansetron 4 Mg Tab.Dis) 4 mg PO Q6H PRN PRN Reason: Nausea able to take PO Ondansetron HCl (Ondansetron 4 Mg/2 Ml Sdv) 4 mg IV Q4H PRN PRN Reason: Nausea/Vomiting Oxycodone HCl (Oxycodone 5 Mg Tab) 10 mg PO Q4H PRN PRN Reason: Pain Pantoprazole Sodium (Pantoprazole 40 Mg Tab.Cr) 40 mg PO DAILY@0730 [facility] Last Admin: 11/17/20 08:01 Dose: 40 mg Documented by: MARCO Tizanidine HCl (Tizanidine 4 Mg Tab) 4 mg PO Q6H PRN PRN Reason: Muscle Spasm - Painful Meds: Medications Generic Name Dose Route Start Last Admin Trade Name Freq PRN Reason Stop Dose Admin Acetaminophen 650 mg 11/17/20 03:15 Acetaminophen 325 Mg Tab PO Q4H PRN Pain (Mild 1-3)/fever Bisacodyl 5 mg 11/17/20 03:15 Bisacodyl 5 Mg Tab PO DAILY PRN Constipation Docusate Sodium 100 mg 11/17/20 03:15 Docusate Sodium 100 Mg Cap PO BID PRN Constipation Enoxaparin Sodium 40 mg 11/17/20 09:10 11/17/20 08:12 Enoxaparin 40 Mg/0.4 Ml Syringe SUBCUT 40 mg DAILY [facility]ITE Administration Hydromorphone HCl 1 mg 11/17/20 10:55 Hydromorphone 1 Mg/Ml Syringe IVPUSH Q2H PRN Pain Methylprednisolone Sodium Succinate 40 mg 11/17/20 09:00 11/17/20 08:01 Methylprednisolone Sodium Succinate 40 Mg/1 Ml Sdv IVPUSH 40 mg Q6H MAITE Administration Naloxone HCl 0.4 mg 11/17/20 03:15 Naloxone 0.4 Mg/Ml Sdv IVPUSH Q2M PRN Respiratory Distress Ondansetron HCl 4 mg 11/17/20 03:15 Ondansetron 4 Mg Tab.Dis PO Q6H PRN Nausea able to take PO Ondansetron HCl 4 mg 11/17/20 03:15 Ondansetron 4 Mg/2 Ml Sdv IV Q4H PRN Nausea/Vomiting Oxycodone HCl 10 mg 11/17/20 10:55 Oxycodone 5 Mg Tab PO Q4H PRN Pain Pantoprazole Sodium 40 mg 11/17/20 07:30 11/17/20 08:01 Pantoprazole 40 Mg Tab.Cr PO 40 mg DAILY@0730 MAITE Administration Tizanidine HCl 4 mg 11/17/20 10:55 Tizanidine 4 Mg Tab PO Q6H PRN Muscle Spasm - Painful Discontinued Medications Generic Name Dose Route Start Last Admin Trade Name Freq PRN Reason Stop Dose Admin Cyclobenzaprine HCl 10 mg 11/17/20 03:15 Cyclobenzaprine 10 Mg Tab PO Q8H PRN Spasms Hydromorphone HCl 0 mg 11/17/20 03:15 11/17/20 03:43 Hydromorphone/Normal Saline 15 Mg/30 Ml Parts Assembler IV 15 mg ASDIRECTED PRN Administration Pain Protocol Sodium Chloride 1,000 mls @ 125 mls/hr 11/17/20 03:15 11/17/20 03:44 Normal Saline IV 125 mls/hr ASDIRECTED MAITE Administration Methylprednisolone Sodium Succinate 125 mg 11/17/20 03:15 11/17/20 03:45 Methylprednisolone Sodium Succinate 125 Mg/2 Ml Sdv IVPUSH 11/17/20 03:16 125 mg ONETIME ONE Administration - Re-Assessments/Exams Free Text/Narrative Re-Assessment/Exam: 11/17/20 00:08 This patient likely has some significant disc impingement of the nerve roots, an MRI would be ideal but we do not have that available so a CT of the lumbar spine will be obtained without contrast. He may need transfer to the neurosurgical hospital 11/17/20 01:36 1. No fracture or malalignment. 2. Degenerative disc disease at L3-4 through L5-S1 as discussed above. At L4-5, there is a question of a superimposed disc protrusion or extrusion, with at least moderate central canal stenosis. Moderate bilateral L4-5 neural foraminal narrowing due to bone spurs is also present. Further evaluation with lumbar spine MRI should be considered. Above findings were discussed with the patient and his . I also called [facility] in [place] and they are not taking any patients that do not need any immediate intervention at this time. They recommended hospitalization here for pain control, possibly anti-inflammatories or steroids and then transfer for an MRI tomorrow. Departure - Departure Time of Disposition: 03:00 Disposition: Admitted As Inpatient 68 Clinical Impression: Lumbar disc disease with radiculopathy - Discharge Information
--- NOTE | 2020-11-17 01:31 | CRLCT ---
For Patients: As a result of the Century Cures Act, medical imaging exams and procedure reports are released immediately into your electronic medical record. You may view this report before your referring provider. If you have questions, please contact your health care provider. INDICATION: Back injury. Right lower extremity neuropathy. CT LUMBAR SPINE WITHOUT CONTRAST TECHNIQUE: Multidetector axial CT imaging was performed through the lumbar spine, without contrast. Sagittal and coronal reconstructions were generated. COMPARISON: 03/21/[address] FINDINGS: No acute fractures are identified. No destructive osseous lesions are noted. Osseous alignment is within normal limits and no subluxation is seen. Paravertebral soft tissues are unremarkable. A small Schmorl`s node is again seen in the superior endplate of S1. There is moderate degenerative disc disease at L3-4 and L4-5 and mild degenerative disc disease at L5-S1. At L4-5 there is a question of a disc protrusion or extrusion; this could be further evaluated with MRI. At least moderate central canal stenosis appears present at L4-5. There is moderate bilateral L4-5 neural foraminal narrowing due to bone spurs. There is a probable small left L4-5 laminotomy defect, as on the previous exam. IMPRESSION: 1. No fracture or malalignment. 2. Degenerative disc disease at L3-4 through L5-S1 as discussed above. At L4-5, there is a question of a superimposed disc protrusion or extrusion, with at least moderate central canal stenosis. Moderate bilateral L4-5 neural foraminal narrowing due to bone spurs is also present. Further evaluation with lumbar spine MRI should be considered. GISELLA FLEMING MD [facility] Dictated by Tremayne Fleming MD @ 11/17/2020 1:28:55 AM Please note that all CT scans at this facility use dose modulation, iterative reconstruction, and/or weight-based dosing when appropriate to reduce radiation dose to as low as reasonably achievable. Dictated by: Tremayne Fleming MD @ 11/17/2020 01:30:00 (Electronically Signed)
--- NOTE | 2020-11-17 02:30 | PCM.HP.2 ---
H&P History of Present Illness - General Date of Service: 11/17/20 Source of Information: Patient, Provider, RN History Limitations: Reports: No Limitations - History of Present Illness Initial Comments - Free Text/Narative: chief complaint: acute back pain ER Provider Note 45-year-old male with prior severe back issues including surgery x2, was on a ladder 3 days ago when he started to fall and reached out for something at an awkward angle and felt a significant pull in his lower back. He managed to get down off the ladder but since that time he has developed progressive weakness in his lower extremities, especially the right and increased pain. At times his feet feel like they are under extreme pressure like balloons. He is starting to lose bladder control. He has numbness in both extremities, especially the right leg. Tonight he tried to get to the bathroom with a walker and didn't have the strength in the right leg to bear weight. He then called the ambulance. Onset: Gradual (Symptoms have gradually worsened for 3 days since his injury) Associated Symptoms: Reports: Weakness (Weakness in his lower extremities, especially the right). Denies: Chest Pain, Cough, Diaphoresis, Fever/Chills, Nausea/Vomiting, Shortness of Breath Right Leg 11/17/20 00:08 This patient likely has some significant disc impingement of the nerve roots, an MRI would be ideal but we do not have that available so a CT of the lumbar spine will be obtained without contrast. He may need transfer to the neurosurgical hospital. 11/17/20 01:36 1. No fracture or malalignment. 2. Degenerative disc disease at L3-4 through L5-S1 as discussed above. At L4-5, there is a question of a superimposed disc protrusion or extrusion, with at least moderate central canal stenosis. Moderate bilateral L4-5 neural foraminal narrowing due to bone spurs is also present. Further evaluation with lumbar spine MRI should be considered. Above findings were discussed with the patient and his . I also called [facility] in [place] and they are not taking any patients that do not need any immediate intervention at this time. They recommended hospitalization here for pain control, possibly anti-inflammatories or steroids and then transfer for an MRI tomorrow. Onset of Symptoms: Reports: Gradual Symptom Onset Date: 11/14/20 Duration of Symptoms: Reports: Day(s): (3 days ago), Getting Worse Location: Reports: Back, Radiates to (right buttocks and right leg) Quality: Reports: Other (sharp stabbing pain with movement - otherwise leg feels like electricity, numb, weakness) Severity: Severe Improves with: Reports: Rest Worsens with: Reports: Movement Context: Reports: Other (almost fell off ladder- turned sharply to balance self from falling- continous intense back pain) Associated Symptoms: Reports: Weakness (right leg) Right Leg Pain Score (Numeric/FACES): 4 - Related Data Allergies/Adverse Reactions: Allergies Allergy/AdvReac Type Severity Reaction Status Date / Time codeine Allergy Intermediate Itching Verified 11/17/20 00:13 tramadol Allergy Intermediate Itching Verified 11/17/20 00:13 Home Medications: Home Meds NK [No Known Home Meds] 10/06/20 [History] Past Medical History Cardiovascular History: Reports: Hypertension Gastrointestinal History: Reports: Cholelithiasis Musculoskeletal History: Reports: Back Pain, Chronic Other Musculoskeletal History: chronic low back pain, 4 knee surgeries, Back surgeries x2 Neurological History: Reports: Migraines - Infectious Disease History Infectious Disease History: Reports: Chicken Pox, Novel Coronavirus - Past Surgical History GI Surgical History: Reports: Cholecystectomy Neurological Surgical History: Reports: Discectomy, Lumbar Spine Other Neurological Surgeries/Procedures: L4 &5 Musculoskeletal Surgical History: Reports: Arthroscopic Knee Other Musculoskeletal Surgeries/Procedures:: x3 Social & Family History - Family History Family Medical History: No Pertinent Family History - Tobacco Use Tobacco Use Status *Q: Former Tobacco User Used Tobacco, but Quit: Yes Month/Year Tobacco Last Used: 7 years ago - Caffeine Use Caffeine Use: Reports: Coffee - Recreational Drug Use Recreational Drug Use: No - Living Situation & Occupation Living situation: Reports: with Significant Other 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[place]., 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) H&P Review of Systems - Review of Systems: Review Of Systems: See Below General: Reports: Other (reports acute intense back pain with right leg numbness) HEENT: Reports: No Symptoms Pulmonary: Reports: No Symptoms Cardiovascular: Reports: No Symptoms Gastrointestinal: Reports: No Symptoms Genitourinary: Reports: Incontinence (since injury- loss of bladder control) Musculoskeletal: Reports: Back Pain, Leg Pain (right) Skin: Reports: No Symptoms Psychiatric: Reports: No Symptoms Neurological: Reports: Numbness (right leg and toes), Tingling (right leg), Difficulty Walking (right leg weakness - pain), Weakness (right leg), Gait Disturbance Hematologic/Lymphatic: Reports: No Symptoms Immunologic: Reports: No Symptoms Exam - Exam Exam: See Below - Vital Signs Vital Signs: Last Vital Signs Temp 98.0 F 11/17/20 00:05 Pulse 64 11/17/20 00:39 Resp 16 11/17/20 00:05 BP 129/85 11/17/20 00:39 Pulse Ox 97 11/17/20 00:39 Weight: 284 lb - Exam Quality Assessment: DVT Prophylaxis General: Alert, Oriented, Cooperative, Other (polite, pleasant adult male. has intense back pain with movement, pain control if not moving) HEENT: PERRLA, Hearing Intact, Mucosa Moist & [place], Nares Patent, Normal Nasal Septum, Posterior Pharynx Clear, Conjunctiva Clear, EOMI, EACs Clear, TMs Clear Neck: Supple, Trachea Midline, 2 Lungs: Clear to Auscultation, Normal Respiratory Effort Cardiovascular: Regular Rate, Regular Rhythm, Normal S1, Normal S2 GI/Abdominal Exam: Normal Bowel Sounds, Soft, Non-Tender (Male) Exam: Deferred Rectal (Males) Exam: Deferred Back Exam: Muscle Spasm, Other (low back pain radiates to right buttock) Extremities: Leg Pain (right leg), Limited Range of Motion (right leg with weakness, unable to lift leg) Peripheral Pulses: 2+: Radial (L), Radial (R), Dorsalis Pedis (L), Dorsalis Pedis (R) Skin: Warm, Dry Neurological: Normal Speech, Reflexes Unequal Neuro Extensive - Mental Status: Alert, Oriented x3, Normal Mood/Affect, Normal Cognition Neuro Extensive - Motor, Sensory, Reflexes: Motor/Sensory Deficits Psychiatric: Alert, Normal Affect, Normal Mood Sepsis Event Note - Evaluation Sepsis Screening Result: No Definite Risk - Focused Exam Vital Signs: Vital Signs Temp Pulse Resp BP Pulse Ox 11/17/20 00:39 64 129/85 97 11/17/20 00:05 98.0 F 74 16 136/82 98 - Problem List (1) Lumbar disc disease with radiculopathy SNOMED Code(s): 010706629 ICD Code: M51.16 - INTERVERTEBRAL DISC DISORDERS W RADICULOPATHY, LUMBAR REGION Status: Acute Priority: High Current Visit: Yes Problem List Initiated/Reviewed/Updated: Yes Assessment/Plan Comment:: ASSESSMENT / PLAN - LUMBAR DISC DISEASE WITH RADICULOPATHY 45-year-old male with prior severe back issues including surgery x2, was on a ladder 3 days ago when he started to fall and reached out for something at an awkward angle and felt a significant pull in his lower back. He managed to get down off the ladder but since that time he has developed progressive weakness in his lower extremities, especially the right and increased pain. At times his feet feel like they are under extreme pressure like balloons. He is starting to lose bladder control. He has numbness in both extremities, especially the right leg. Tonight he tried to get to the bathroom with a walker and didn't have the strength in the right leg to bear weight. He then called the ambulance. CT scan of the lumbar spine-1. No fracture or malalignment. 2. Degenerative disc disease at L3-4 through L5-S1 as discussed above. At L4-5, there is a question of a superimposed disc protrusion or extrusion, with at least moderate central canal stenosis. Moderate bilateral L4-5 neural foraminal narrowing due to bone spurs is also present. Further evaluation with lumbar spine MRI should be considered. Plan Called discussed case with hospitalist almond blancher agreed to come and evaluate the patient in the emergency department for admission LUMBAR DISC DISEASE WITH RADICULOPATHY - -Admit to [address] [place] [address] for further monitoring -IV Fluids Normal Saline at 125 mL per hour -IV Dilaudid QUALITY ASSURANCE ASSESSOR -anti nausea medication ordered -IV Solumedrol 125 mg once then 40 mg every 6 hours -Flexeril 10 mg po every 8 hours as needed for spasm -MRI of lumbar spine ordered for Saturday -Advise to notify nurses of any fever or worsen pain -And a.m. labs: CBC, BMP Maintenance issues -no chronic medications -Nutrition - regular diet -Ortega catheter not indicated at this time -DVT - Lovenox 40 mg subcut daily -PPI - Protonix 40mg daily CODE STATUS: FULL Admission status: Admit to [address] [place] [address] This Patient is Admitted for Inpatient Services and is Medically Appropriate and Meets Medical Necessity for Inpatient Admission. I Reasonably Expect the Patient will Require Inpatient Services that Span a Period of Over 2 Midnights. My Rationale for Medically Necessary Inpatient Care will be Found in the Admission History & Physical and Progress Notes. I Reasonably Expect the Patient to be Discharged or Transferred within 96 Hours After Admission to this Critical Access Hospital. Disposition: home Primary care provider: [facility] Hospitalist: Dr. Khan - Mortality Measure Prognosis:: Good
[2020-11-17] MEDS ORDERED: Docusate Sodium 100 MG Cap PO PRN (03:15)
[2020-11-17] MEDS ORDERED: methylPREDNISolone Sodium Succinate 125 MG/2 ML SDV IVPUSH ONE (03:15)
[2020-11-17] MEDS ORDERED: Sodium Chloride 0.9% 1,000 ML IV SCH (03:15)
[2020-11-17] MEDS ORDERED: Naloxone 0.4 MG/ML SDV IVPUSH PRN (03:15)
[2020-11-17] MEDS ORDERED: Ondansetron 4 MG/2 ML SDV IV PRN (03:15)
[2020-11-17] MEDS ORDERED: Cyclobenzaprine 10 MG Tab PO PRN (03:15)
[2020-11-17] MEDS ORDERED: Ondansetron 4 MG Tab.DIS PO PRN (03:15)
[2020-11-17] MEDS ORDERED: HYDROmorphone/Normal Saline 15 MG/30 ML PCA IV PRN (03:15)
[2020-11-17] MEDS ORDERED: Acetaminophen 325 MG Tab PO PRN (03:15)
[2020-11-17] MEDS ORDERED: Bisacodyl 5 MG Tab PO PRN (03:15)
[2020-11-17] MEDS: Pantoprazole 40 MG Tab.CR PO SCH (08:01)
[2020-11-17] MEDS: methylPREDNISolone Sodium Succinate 40 MG/1 ML SDV IVPUSH SCH ×3 (08:01→20:54)
[2020-11-17] MEDS: Enoxaparin 40 MG/0.4 ML Syringe SUBCUT SCH (08:12)
[2020-11-17] MEDS ORDERED: tiZANidine 4 MG Tab PO PRN (10:55)
--- NOTE | 2020-11-17 11:00 | PCM.PN ---
- General Info Date of Service: 11/17/20 Subjective Update: No acute events overnight following admission. Pain control has improved with the use of the HYDRAULIC RIVETER. Still has some numbness down the right leg. No report of bowel or bladder incontinence. He is able to move very slowly and gingerly but improving compared to yesterday/last night. Functional Status: Reports: Pain Controlled - Review of Systems General: Reports: Weakness Neurological: Reports: Paresthesia, Tingling - Patient Data Vitals - Most Recent: Last Vital Signs Temp 37.0 C 11/17/20 03:15 Pulse 71 11/17/20 08:09 Resp 16 11/17/20 08:09 BP 113/72 11/17/20 08:09 Pulse Ox 96 11/17/20 08:09 Weight - Most Recent: 126.099 kg I&O - Last 24 Hours: Intake & Output 11/16/20 11/17/20 11/17/20 22:59 06:59 14:59 Intake Total 300 Balance 300 Lab Results Last 24 Hours: Laboratory Results - last 24 hr 11/17/20 11/17/20 Range/Units 05:47 05:47 WBC 10.5 (4.5-11.0) K/uL RBC 5.31 (4.30-5.90) M/uL Hgb 15.0 (12.0-15.0) g/dL Hct 45.0 (40.0-54.0) % MCV 85 (80-98) fL MCH 28 (27-31) pg MCHC 33 (32-36) % Plt Count 254 (150-400) K/uL Neut % (Auto) 80.1 H (36-66) % Lymph % (Auto) 14.8 L (24-44) % [place] % (Auto) 3.4 (2-6) % Eos % (Auto) 1.5 L (2-4) % Baso % (Auto) 0.2 (0-1) % Sodium 138 L (140-148) mmol/L Potassium 4.3 (3.6-5.2) mmol/L Chloride 102 (100-108) mmol/L Carbon Dioxide 28 (21-32) mmol/L Anion Gap 12.3 (5.0-14.0) mmol/L BUN 15 (7-18) mg/dL Creatinine 1.0 (0.8-1.3) mg/dL Est Cr Clr Drug Dosing 98.35 mL/min Estimated GFR (MDRD) > 60 (>60) Glucose 104 (74-106) mg/dL Calcium 9.0 (8.5-10.1) mg/dL Med Orders - Current: Current Medications Acetaminophen (Acetaminophen 325 Mg Tab) 650 mg PO Q4H PRN PRN Reason: Pain (Mild 1-3)/fever Bisacodyl (Bisacodyl 5 Mg Tab) 5 mg PO DAILY PRN PRN Reason: Constipation Docusate Sodium (Docusate Sodium 100 Mg Cap) 100 mg PO BID PRN PRN Reason: Constipation Enoxaparin Sodium (Enoxaparin 40 Mg/0.4 Ml Syringe) 40 mg SUBCUT DAILY [facility] Last Admin: 11/17/20 08:12 Dose: 40 mg Documented by: Methylprednisolone Sodium Succinate (Methylprednisolone Sodium Succinate 40 Mg/1 Ml Sdv) 40 mg IVPUSH Q6H [facility] Last Admin: 11/17/20 08:01 Dose: 40 mg Documented by: Naloxone HCl (Naloxone 0.4 Mg/Ml Sdv) 0.4 mg IVPUSH Q2M PRN PRN Reason: Respiratory Distress Ondansetron HCl (Ondansetron 4 Mg Tab.Dis) 4 mg PO Q6H PRN PRN Reason: Nausea able to take PO Ondansetron HCl (Ondansetron 4 Mg/2 Ml Sdv) 4 mg IV Q4H PRN PRN Reason: Nausea/Vomiting Pantoprazole Sodium (Pantoprazole 40 Mg Tab.Cr) 40 mg PO DAILY@0730 [facility] Last Admin: 11/17/20 08:01 Dose: 40 mg Documented by: Discontinued Medications Cyclobenzaprine HCl (Cyclobenzaprine 10 Mg Tab) 10 mg PO Q8H PRN PRN Reason: Spasms Hydromorphone HCl (Hydromorphone/Normal Saline 15 Mg/30 Ml Concrete Mixing Plant Laborer) 0 mg IV ASDIRECTED PRN; Protocol PRN Reason: Pain Last Admin: 11/17/20 03:43 Dose: 15 mg Documented by: Sodium Chloride (Normal Saline) 1,000 mls @ 125 mls/hr IV ASDIRECTED [facility] Last Admin: 11/17/20 03:44 Dose: 125 mls/hr Documented by: Methylprednisolone Sodium Succinate (Methylprednisolone Sodium Succinate 125 Mg/ 2 Ml Sdv) 125 mg IVPUSH ONETIME ONE Stop: 11/17/20 03:16 Last Admin: 11/17/20 03:45 Dose: 125 mg Documented by: - Exam Quality Assessment: No: Supplemental Oxygen General: Alert, Oriented, Cooperative, No Acute Distress Lungs: Normal Respiratory Effort GI/Abdominal Exam: Soft, No Distention Extremities: No Pedal Edema Skin: Warm, Dry Neurological: No New Focal Deficit Psy/Mental Status: Alert, Normal Affect - Patient Data Lab Results Last 24 hrs: Laboratory Results - last 24 hr 11/17/20 11/17/20 Range/Units 05:47 05:47 WBC 10.5 (4.5-11.0) K/uL RBC 5.31 (4.30-5.90) M/uL Hgb 15.0 (12.0-15.0) g/dL Hct 45.0 (40.0-54.0) % MCV 85 (80-98) fL MCH 28 (27-31) pg MCHC 33 (32-36) % Plt Count 254 (150-400) K/uL Neut % (Auto) 80.1 H (36-66) % Lymph % (Auto) 14.8 L (24-44) % [place] % (Auto) 3.4 (2-6) % Eos % (Auto) 1.5 L (2-4) % Baso % (Auto) 0.2 (0-1) % Sodium 138 L (140-148) mmol/L Potassium 4.3 (3.6-5.2) mmol/L Chloride 102 (100-108) mmol/L Carbon Dioxide 28 (21-32) mmol/L Anion Gap 12.3 (5.0-14.0) mmol/L BUN 15 (7-18) mg/dL Creatinine 1.0 (0.8-1.3) mg/dL Est Cr Clr Drug Dosing 98.35 mL/min Estimated GFR (MDRD) > 60 (>60) Glucose 104 (74-106) mg/dL Calcium 9.0 (8.5-10.1) mg/dL Result Diagrams: 11/17/20 05:47 11/17/20 05:47 Sepsis Event Note - Evaluation Sepsis Screening Result: No Definite Risk - Focused Exam Vital Signs: Vital Signs Temp Pulse Resp BP Pulse Ox 11/17/20 08:09 71 16 113/72 96 11/17/20 03:40 95 11/17/20 03:15 37.0 C 63 16 124/80 96 11/17/20 00:39 64 129/85 97 11/17/20 00:05 36.7 C 74 16 136/82 98 - Problem List Review Problem List Initiated/Reviewed/Updated: Yes - My Orders Last 24 Hours: My Active Orders 11/17/20 10:55 HYDROmorphone [Dilaudid] 1 mg IVPUSH Q2H PRN oxyCODONE 10 mg PO Q4H PRN tiZANidine [Zanaflex] 4 mg PO Q6H PRN 11/17/20 10:56 Convert IV to Saline Lock [OM.PC] Routine 11/18/20 07:00 Lumbar Spine Comp w Cont [MR] Stat - Plan Plan:: ASSESSMENT / PLAN - LUMBAR DISC DISEASE L4/L5 WITH RADICULOPATHY -disc protrusion at L4/L5 leading to at least moderate canal stenosis and radicular symptoms. No bowel or bladder incontinence. Pain control improving. MRI not available today. -Symptomatic management of pain, transition to oral medications today -Continue steroids -Muscle relaxer -MRI of lumbar spine in the morning -Review case with neurosurgery if significant abnormalities are found on the MRI Maintenance issues -Nutrition - regular diet -Ortega catheter not indicated at this time -DVT - Lovenox 40 mg subcut daily -GI - Protonix 40mg daily Disposition: Possibly home with physical therapy and outpatient management unless he requires transfer to a higher level of care Primary care provider: Dr. Martines, [facility] Jose Roberto Khan MD
[2020-11-17] MEDS: oxyCODONE 5 MG Tab PO PRN ×2 (15:06→20:53)
[2020-11-17] MEDS: HYDROmorphone 1 MG/ML Syringe IVPUSH PRN (18:39)
[2020-11-18] MEDS: oxyCODONE 5 MG Tab PO PRN ×4 (01:33→18:27)
[2020-11-18] MEDS: methylPREDNISolone Sodium Succinate 40 MG/1 ML SDV IVPUSH SCH ×3 (02:00→16:08)
[2020-11-18] MEDS: Pantoprazole 40 MG Tab.CR PO SCH (07:42)
[2020-11-18] MEDS ORDERED: Gadoteridol 279.3 MG/ML 20 ML SDV IV SCH (09:00)
[2020-11-18] MEDS: HYDROmorphone 1 MG/ML Syringe IVPUSH PRN ×2 (09:50→20:07)
[2020-11-18] MEDS: Enoxaparin 40 MG/0.4 ML Syringe SUBCUT SCH (09:52)
--- NOTE | 2020-11-18 10:05 | CRLMR ---
For Patients: As a result of the Century Cures Act, medical imaging exams and procedure reports are released immediately into your electronic medical record. You may view this report before your referring provider. If you have questions, please contact your health care provider. Indication: Acute lumbar back pain, history of prior lumbar surgeries, recent fall 2 weeks ago Technique: Multiplanar, multisequence MR images of the lumbar spine were obtained with and without the administration of IV contrast. 20 cc ProHance intravenous gadolinium Comparison: MRI lumbar spine July 08, 2012 Findings: The lumbar vertebral body heights are grossly maintained with stable endplate Schmorl`s defects. There is mild straightening of the normal lumbar lordosis without significant spondylolisthesis, similar to previous exam. There is interval development of a large left paracentral disc extrusion at the L4-5 level with near complete effacement of the spinal canal and left greater than right lateral recesses. There is severe left and moderate right neural foraminal narrowing. There is additional multilevel degenerative disc disease with small disc protrusions and annular fissures at the L2-L3 and L3-L4 as well as the L5-S1 levels. There is mild to moderate neural foraminal narrowing at these levels. There is minimal endplate Modic marrow degenerative change, otherwise there is no evidence of Modic edema to suggest acute fracture. The conus medullaris terminates at the T12-L1 level and is normal in signal and contour. The paraspinous soft tissues are grossly unremarkable. There is no abnormal contrast enhancement. Impression: Interval development of a large left paracentral disc extrusion at the L4-L5 level with near complete effacement of the spinal canal, nerve roots and left lateral recess likely representing the nidus of the patient`s symptoms. Otherwise additional degenerative disc changes are appreciated as described above. Dictated by Donn Casey MD @ 11/18/2020 10:04:52 AM (Electronically Signed)
[2020-11-18] MEDS ORDERED: Calcium Carbonate 500 MG Tab.Chew PO PRN ×2 (10:12→10:13)
--- NOTE | 2020-11-18 13:22 | PCM.PN ---
- General Info Date of Service: 11/18/20 Subjective Update: No acute events overnight. Patient reports ongoing but slightly improved pain in the lower back. Pain radiates down both legs but more so on the right side. He reports ongoing weakness with the right side affected more than the left. He is unable to bear any weight on the right leg because of weakness. He reports a different in sensation between right and left with less sensation on the right. He has not lost control of bowel or bladder in the past 24 hours. MRI today showed a large paracentral disc bulge between L4 and L5 with effacement of the spinal canal as well as exiting nerve roots. Case was discussed with neurosurgery at [facility] in [place]. Functional Status: Reports: Pain Controlled - Patient Data Vitals - Most Recent: Last Vital Signs Temp 35.3 C L 11/18/20 07:37 Pulse 93 11/18/20 07:37 Resp 16 11/18/20 07:37 BP 134/82 11/18/20 07:37 Pulse Ox 94 L 11/18/20 07:37 Weight - Most Recent: 126.099 kg I&O - Last 24 Hours: Intake & Output 11/17/20 11/18/20 11/18/20 22:59 06:59 14:59 Intake Total 1950 Output Total 800 300 800 Balance 1150 -300 -800 Med Orders - Current: Current Medications Acetaminophen (Acetaminophen 325 Mg Tab) 650 mg PO Q4H PRN PRN Reason: Pain (Mild 1-3)/fever Bisacodyl (Bisacodyl 5 Mg Tab) 5 mg PO DAILY PRN PRN Reason: Constipation Calcium Carbonate/Glycine (Calcium Carbonate 500 Mg Tab.Chew) 1,000 mg PO Q2H PRN PRN Reason: Indigestion Last Admin: 11/18/20 10:22 Dose: 1,000 mg Documented by: Docusate Sodium (Docusate Sodium 100 Mg Cap) 100 mg PO BID PRN PRN Reason: Constipation Enoxaparin Sodium (Enoxaparin 40 Mg/0.4 Ml Syringe) 40 mg SUBCUT DAILY [facility] Last Admin: 11/18/20 09:52 Dose: 40 mg Documented by: Hydromorphone HCl (Hydromorphone 1 Mg/Ml Syringe) 1 mg IVPUSH Q2H PRN PRN Reason: Pain Last Admin: 11/18/20 09:50 Dose: 1 mg Documented by: Methylprednisolone Sodium Succinate (Methylprednisolone Sodium Succinate 40 Mg/1 Ml Sdv) 40 mg IVPUSH Q6H [facility] Last Admin: 11/18/20 09:52 Dose: 40 mg Documented by: Naloxone HCl (Naloxone 0.4 Mg/Ml Sdv) 0.4 mg IVPUSH Q2M PRN PRN Reason: Respiratory Distress Ondansetron HCl (Ondansetron 4 Mg Tab.Dis) 4 mg PO Q6H PRN PRN Reason: Nausea able to take PO Ondansetron HCl (Ondansetron 4 Mg/2 Ml Sdv) 4 mg IV Q4H PRN PRN Reason: Nausea/Vomiting Oxycodone HCl (Oxycodone 5 Mg Tab) 10 mg PO Q4H PRN PRN Reason: Pain Last Admin: 11/18/20 12:37 Dose: 10 mg Documented by: Pantoprazole Sodium (Pantoprazole 40 Mg Tab.Cr) 40 mg PO DAILY@0730 [facility] Last Admin: 11/18/20 07:42 Dose: 40 mg Documented by: Tizanidine HCl (Tizanidine 4 Mg Tab) 4 mg PO Q6H PRN PRN Reason: Muscle Spasm - Painful Last Admin: 11/18/20 09:50 Dose: 4 mg Documented by: Discontinued Medications Cyclobenzaprine HCl (Cyclobenzaprine 10 Mg Tab) 10 mg PO Q8H PRN PRN Reason: Spasms Gadoteridol (Gadoteridol 279.3 Mg/Ml 20 Ml Sdv) 20 ml IV . DIRECTED [facility] Stop: 11/18/20 09:01 Last Admin: 11/18/20 09:40 Dose: 20 ml Documented by: Hydromorphone HCl (Hydromorphone/Normal Saline 15 Mg/30 Ml Ground Operations Crew Member) 0 mg IV ASDIRECTED PRN; Protocol PRN Reason: Pain Last Admin: 11/17/20 03:43 Dose: 15 mg Documented by: Sodium Chloride (Normal Saline) 1,000 mls @ 125 mls/hr IV ASDIRECTED [facility] Last Admin: 11/17/20 03:44 Dose: 125 mls/hr Documented by: Methylprednisolone Sodium Succinate (Methylprednisolone Sodium Succinate 125 Mg/2 Ml Sdv) 125 mg IVPUSH ONETIME ONE Stop: 11/17/20 03:16 Last Admin: 11/17/20 03:45 Dose: 125 mg Documented by: - Exam Quality Assessment: No: Supplemental Oxygen General: Alert, Oriented, Cooperative, No Acute Distress Lungs: Normal Respiratory Effort GI/Abdominal Exam: Soft, No Distention Extremities: No Pedal Edema. No: Joint Swelling Skin: Warm, Dry Neurological: Reflexes Equal Bilateral (Patellar reflexes are 3+ and symmetric), Other (Plantarflexion and dorsiflexion of the right leg are 3/5. Patient does not able to lift his right leg off the bed. Plantar flexion and dorsiflexion of the left foot are 4/5. He is able to lift his left leg off the bed only very slightly). No: Strength Equal Bilateral, Sensation Intact (Minimal ability to feel light touch on the right leg from about mid thigh distally. Sensation mostly intact on the left) Psy/Mental Status: Alert, Normal Affect - Patient Data Result Diagrams: 11/17/20 05:47 11/17/20 05:47 Sepsis Event Note - Evaluation Sepsis Screening Result: Possible Sepsis Risk - Focused Exam Vital Signs: Vital Signs Temp Pulse Resp BP Pulse Ox 11/18/20 07:37 35.3 C L 93 16 134/82 94 L 11/18/20 03:08 35.8 C L 60 16 130/70 95 - Problem List Review Problem List Initiated/Reviewed/Updated: Yes - My Orders Last 24 Hours: My Active Orders 11/18/20 10:13 Calcium Carbonate [Tums] 1,000 mg PO Q2H PRN - Plan Plan:: ASSESSMENT / PLAN - LUMBAR DISC DISEASE L4/L5 WITH RADICULOPATHY -disc protrusion at L4/L5 leading to effacement of the spinal canal as well as encroachment on both left and right nerve roots. Disc bulge seems more impressive on the left but symptoms are more impressive on the right. He has significant weakness as well as paresthesias of the right leg and is unable to bear weight. Case was discussed with Dr. Nolan of the neurosurgery team at [facility]. He did recommend transfer for surgery tomorrow. -Symptomatic management of pain -Continue steroids -Muscle relaxer -Transfer to [facility] for neurosurgical intervention as soon as a bed is available Maintenance issues -Nutrition - regular diet -Ortega catheter not indicated at this time -DVT - Lovenox 40 mg subcut daily -GI - Protonix 40mg daily Disposition: Anticipate transfer to [facility] later today or early tomorrow Primary care provider: Dr. Martines, [facility] Jose Roberto Khan MD
--- NOTE | 2020-11-18 18:13 | PCM.DCSUM1 ---
Discharge Summary - Hospital Course Brief History: 45-year-old male with history of previous L4/L5 discectomy who presented with acute onset of back pain after twisting on an unstable ladder. CT scan showed a large disc bulge with at least moderate impingement on the spinal cord. He was admitted for pain control and additional work-up with an MRI. Diagnosis: Stroke: No - Discharge Data Discharge Date: 11/18/20 Discharge Disposition: DC/Tfer to Acute Hospital 02 Condition: Stable - Referral to Home Health Primary Care Physician: PCP None - Discharge Diagnosis/Problem(s) (1) Lumbar disc disease with radiculopathy SNOMED Code(s): 160377826 ICD Code: M51.16 - INTERVERTEBRAL DISC DISORDERS W RADICULOPATHY, LUMBAR REGION Status: Acute Priority: High Current Visit: Yes (2) Bulging of intervertebral disc between L4 and L5 SNOMED Code(s): 897549528 ICD Code: M51.26 - OTHER INTERVERTEBRAL DISC DISPLACEMENT, LUMBAR REGION Status: Acute Current Visit: Yes - Patient Summary/Data Hospital Course: Trent presented to the emergency room today after injuring his back on an unstable ladder. He was reporting a significant amount of lower back pain that radiated down both legs but the right leg more than the left. He reported significant weakness in the right leg and was not able to bear weight. He did report some mild bladder incontinence at that time. In the emergency room a CT scan was obtained because MRI was not available at that time. This showed a probable large disc bulge between L4 and L5 with significant impingement on the spinal cord. The patient was admitted to the hospital for pain control and an MRI when it was available. He was initiated on IV steroids as well as symptomatic management of the pain. The day after admission his pain had improved some. He continued to have significant weakness of the right lower extremity and is not able to bear any weight on the right leg because of the weakness. He has impaired sensation on the right leg as well. Strength of the left leg is compromised but not to his great of an extent as the right leg. He remained stable throughout the day after admission. On the day of discharge we were able to obtain an MRI of the lumbar spine. This showed a large left paracentral disc extrusion at L4/L5 with near complete effacement of the spinal canal as well as the left lateral recess as well as the exiting nerve roots. The case was discussed with on-call neurosurgery at [facility]. Urgent surgery was recommended. The patient will be transferred there for surgical intervention. He is stable for transfer and the benefits of transfer far outweigh the risks at this time. - Patient Instructions Other/Special Instructions: Transfer to [facility] for urgent neurosurgical evaluation and treatment with surgery planned for tomorrow morning - Discharge Plan *PRESCRIPTION DRUG MONITORING PROGRAM REVIEWED*: Not Applicable *COPY OF PRESCRIPTION DRUG MONITORING REPORT IN PATIENT GLADYS: Not Applicable Home Medications: Home Meds NK [No Known Home Meds] 10/06/20 [History] Forms: ED Department Discharge Referrals: PCP,None [Primary Care Provider] - - Discharge Summary/Plan Comment DC Time >30 min.: Yes Total # of Minutes for Discharge Time: 45-transfer to acute hospital - Patient Data Vitals - Most Recent: Last Vital Signs Temp 35.8 C L 11/18/20 14:45 Pulse 88 11/18/20 14:45 Resp 16 11/18/20 14:45 BP 128/76 11/18/20 14:45 Pulse Ox 94 L 11/18/20 14:45 Weight - Most Recent: 126.099 kg I&O - Last 24 hours: Intake & Output 11/18/20 11/18/20 11/18/20 06:59 14:59 22:59 Intake Total 480 Output Total 300 800 500 Balance -300 -800 -20 Med Orders - Current: Current Medications Acetaminophen (Acetaminophen 325 Mg Tab) 650 mg PO Q4H PRN PRN Reason: Pain (Mild 1-3)/fever Bisacodyl (Bisacodyl 5 Mg Tab) 5 mg PO DAILY PRN PRN Reason: Constipation Calcium Carbonate/Glycine (Calcium Carbonate 500 Mg Tab.Chew) 1,000 mg PO Q2H PRN PRN Reason: Indigestion Last Admin: 11/18/20 10:22 Dose: 1,000 mg Documented by: Docusate Sodium (Docusate Sodium 100 Mg Cap) 100 mg PO BID PRN PRN Reason: Constipation Enoxaparin Sodium (Enoxaparin 40 Mg/0.4 Ml Syringe) 40 mg SUBCUT DAILY [facility] Last Admin: 11/18/20 09:52 Dose: 40 mg Documented by: Hydromorphone HCl (Hydromorphone 1 Mg/Ml Syringe) 1 mg IVPUSH Q2H PRN PRN Reason: Pain Last Admin: 11/18/20 09:50 Dose: 1 mg Documented by: Methylprednisolone Sodium Succinate (Methylprednisolone Sodium Succinate 40 Mg/1 Ml Sdv) 40 mg IVPUSH Q6H [facility] Last Admin: 11/18/20 16:08 Dose: 40 mg Documented by: Naloxone HCl (Naloxone 0.4 Mg/Ml Sdv) 0.4 mg IVPUSH Q2M PRN PRN Reason: Respiratory Distress Ondansetron HCl (Ondansetron 4 Mg Tab.Dis) 4 mg PO Q6H PRN PRN Reason: Nausea able to take PO Ondansetron HCl (Ondansetron 4 Mg/2 Ml Sdv) 4 mg IV Q4H PRN PRN Reason: Nausea/Vomiting Oxycodone HCl (Oxycodone 5 Mg Tab) 10 mg PO Q4H PRN PRN Reason: Pain Last Admin: 11/18/20 12:37 Dose: 10 mg Documented by: Pantoprazole Sodium (Pantoprazole 40 Mg Tab.Cr) 40 mg PO DAILY@0730 [facility] Last Admin: 11/18/20 07:42 Dose: 40 mg Documented by: Tizanidine HCl (Tizanidine 4 Mg Tab) 4 mg PO Q6H PRN PRN Reason: Muscle Spasm - Painful Last Admin: 11/18/20 09:50 Dose: 4 mg Documented by: Discontinued Medications Cyclobenzaprine HCl (Cyclobenzaprine 10 Mg Tab) 10 mg PO Q8H PRN PRN Reason: Spasms Gadoteridol (Gadoteridol 279.3 Mg/Ml 20 Ml Sdv) 20 ml IV . DIRECTED [facility] Stop: 11/18/20 09:01 Last Admin: 11/18/20 09:40 Dose: 20 ml Documented by: Hydromorphone HCl (Hydromorphone/Normal Saline 15 Mg/30 Ml Sketcher) 0 mg IV ASDIRECTED PRN; Protocol PRN Reason: Pain Last Admin: 11/17/20 03:43 Dose: 15 mg Documented by: Sodium Chloride (Normal Saline) 1,000 mls @ 125 mls/hr IV ASDIRECTED [facility] Last Admin: 11/17/20 03:44 Dose: 125 mls/hr Documented by: Methylprednisolone Sodium Succinate (Methylprednisolone Sodium Succinate 125 Mg/2 Ml Sdv) 125 mg IVPUSH ONETIME ONE Stop: 11/17/20 03:16 Last Admin: 11/17/20 03:45 Dose: 125 mg Documented by:
[2020-11-18 20:01] VITALS: BP 132/70; PULSE 84
== END 2020-11-18 20:30 | DRG 552 ==
LOC: JP.ED 00:03 → JP.MS 02:32
PROVIDERS: ADMIT Internal Medicine; ATTEND Internal Medicine
DX: M51.16 Intervertebral disc disorders with radiculopathy, lumbar region (principal); M51.26 Other intervertebral disc displacement, lumbar region; I10 Essential (primary) hypertension; K80.20 Calculus of gallbladder without cholecystitis without obstruction; M48.061 Spinal stenosis, lumbar region without neurogenic claudication; Z88.5 Allergy status to narcotic agent; Z87.891 Personal history of nicotine dependence; Z90.49 Acquired absence of other specified parts of digestive tract
CPT/HCPCS: 36415; 72131; 72158; 80048; 85025; A9270-GY; A9579; J1170; J1650; J2920; J2930; J7030

== ENCOUNTER 2023-03-26 17:30 | Emergency (ER) | payer MEDICAID ==
[2023-03-26 18:20] VITALS: BP 139/93; PULSE 68
== END 2023-03-26 22:36 | disposition home or self-care (01) ==
LOC: JP.ED 17:30
DX: M54.30 Sciatica, unspecified side (principal); M48.061 Spinal stenosis, lumbar region without neurogenic claudication
CPT/HCPCS: 72131; 72131-26; 76377; 99283

== ENCOUNTER 2024-11-06 23:53 | Emergency (ER) | payer MEDICAID ==
[2024-11-07] MEDS: Ketorolac 30 MG/ML SDV IM ONE (02:24)
[2024-11-07 02:49] VITALS: BP 138/74; PULSE 78
== END 2024-11-07 02:46 | disposition home or self-care (01) ==
LOC: JP.ED 23:53
DX: S86.111A Strain of other muscle(s) and tendon(s) of posterior muscle group at lower leg level, right leg, initial encounter (principal); I10 Essential (primary) hypertension; Z86.16 Personal history of COVID-19; Z88.5 Allergy status to narcotic agent; Z79.899 Other long term (current) drug therapy; Z90.49 Acquired absence of other specified parts of digestive tract; X50.0XXA Overexertion from strenuous movement or load, initial encounter; Y93.89 Activity, other specified
CPT/HCPCS: 96372; 99283; J1885